=== PATIENT | male | born 1970 | race African-American/Black ===

== ENCOUNTER 2018-11-11 11:34 | Inpatient (IN) | payer MEDICAID, MEDICARE, OTHER, SELFPAY ==
[2018-11-11 12:40] LABS: #Lymphocytes 1.8 thou/uL (1.20-3.40); #Monocytes 0.3 thou/uL (0.11-0.59); #Neutrophils 1.8 thou/uL (1.40-6.50); %Basophils 0.6 % (0.0-1.0); %Eosinophils 0.4 % (0.0-10.0); %Lymphocytes 44.9 % (21.0-51.0); %Monocytes 8.5 % (0.0-10.0); %Neutrophils 45.7 % (42.0-75.0); Hemoglobin 12.8 g/dL (14.0-18.0); Mean Corpuscular HGB CONC 29.6 g/dL (32.0-36.0); Mean Corpuscular Hemoglobin 24.5 pg (27.0-31.0); Mean Corpuscular Volume 82.9 fL (78.0-98.0); Mean Platelet Volume 9.9 fL (7.4-10.4); Platelet Count 207 thou/uL (130-400); RBC Distribution Width 16.7 % (11.5-14.5); Red Blood Cell (RBC) Count 5.23 mill/uL (4.70-6.10)
[2018-11-11 12:44] LABS: ALT (SGPT) 35 U/L (8-55); AST (SGOT) 32 U/L (5-34); Albumin 3.8 g/dL (3.5-5.0); Alkaline Phosphatase 47 U/L (40-150); Anion Gap 15 mmol/L (10-20); BUN (Urea Nitrogen) 26 mg/dL (8.9-20.6); CK (CPK) 193 U/L (30-200); Calc. Creatinine Clearance 0 mL/min (70-130); Carbon Dioxide 24 mmol/L (22-29); Chloride 105 mmol/L (98-107); Estimated GFR-MDRD 63; Globulin 4.3 g/dL (2.4-3.5); Glucose 184 mg/dL (70-105); Lipase 26 U/L (8-78); Potassium 4.3 mmol/L (3.5-5.1); Protein, Total 8.1 g/dL (6.0-8.3); Sodium 140 mmol/L (136-145)
--- NOTE | 2018-11-11 12:46 | RAD ---
CHEST ONE VIEW: History: 48-year-old male with history of dyspnea. History of congestive heart failure, shortness of breath fo r two days. Comparison: 08-28-17 FINDINGS: Cardiomegaly with enlargement when compared to the 08-28-17 study. Mild bilateral vascular congestion and probable small pleural effusions. IMPRESSION: Progressive cardiomegaly with some bilateral vascular congestion and probable small pleural effusions which certainly could be seen with minimal congestive heart failure. No overt edema or confluent pne umonia. POS: ALFIEH
[2018-11-11] MEDS ORDERED: Aspirin 325 MG TAB ONE (13:07)
[2018-11-11] MEDS ORDERED: Nitroglycerin 2% Ointment 1 INCH/1 GM Packet ONE (13:07)
[2018-11-11] MEDS ORDERED: Furosemide 40 MG/4 ML VIAL ONE (13:07)
[2018-11-11 16:26] LABS: Troponin I 0.042 ng/mL (< 0.028)
[2018-11-11 17:25] LABS: Bilirubin Negative (Negative); Blood, Urine Negative (Negative); Clarity CLEAR (Clear); Glucose, Urine (Dipstick) Negative (Negative); Leukocyte Trace (Negative); Nitrite Negative (Negative); Protein, Urine (Dipstick) Negative (Neg-Trace); Specific Gravity, Urine 1.007 (1.002-1.036); Urobilinogen 0.2 mg/dL (0.2-1.0)
[2018-11-11 17:28] LABS: Bacteria/HPF None Seen HPF (None Seen); Hyaline Casts/LPF 0-3 HYALINE CAST LPF (0-3 Hyaline); Pathc Cast-AUWi Flag 0.14 (0-2.49); RBC/HPF 0-3 HPF (0-3); Squamous Epithelial 0-3 HPF (0-3); WBC/HPF 0-3 HPF (0-3)
[2018-11-11 17:42] LABS: Amphetamine Not Detected (NotDetected); Barbiturates Screen Not Detected (NotDetected); Benzodiazepine Screen Not Detected (NotDetected); Cocaine Metabolite Screen Not Detected (NotDetected); Medtox Control Line Valid? VALID (VALID); Medtox Reader # READER 1; Methadone Not Detected (NotDetected); Methamphetamine Not Detected (NotDetected); Opiate Screen Not Detected (NotDetected); Oxycodone Screen Not Detected (NotDetected); Phencyclidine (PCP) Not Detected (NotDetected); THC/Cannabinoid Screen Not Detected (NotDetected); Tricyclic Screen Not Detected (NotDetected)
[2018-11-11] MEDS ORDERED: Calcium Carbonate 500 MG ChewTAB PO PRN (18:35)
[2018-11-11] MEDS ORDERED: Ondansetron PF 4 MG/2 ML Vial IVP PRN (18:35)
[2018-11-11] MEDS ORDERED: Senokot S 8.6-50 MG TAB PO PRN (18:35)
[2018-11-11] MEDS ORDERED: Ondansetron ODT 4 MG TAB PO PRN (18:35)
[2018-11-11 19:19] LABS: Troponin I 0.038 ng/mL (< 0.028)
--- NOTE | 2018-11-11 20:50 | HP ---
PRIMARY CARE PHYSICIAN: Samaria Pete MD PRIMARY POKER SUPERVISOR: The patient has seen Dr. Hannah in the past. CHIEF COMPLAINT: Shortness of breath. HISTORY OF PRESENT ILLNESS: The patient is a 48-year-old male with chronic systolic heart failure, presented to the emergency room with the above complaint. The last admission to this facility was in 2012 for end-stage cardiomyopathy. He was transferred to [facility] in [place] for further care of his end-stage cardiomyopathy. He has a history of normal coronaries in January of 2012. The patient has not been taking any medications recently. The patient presented to the emergency room with worsening shortness of breath over the last 3 to 4 months. The shortness of breath got worse over the last 24 to 48 hours. He has not been able to do his routine activities due to worsening of shortness of breath. He also noticed increased abdominal distention along with some swelling in bilateral lower extremities. He had some cough which was productive of thick whitish phlegm. He had mild generalized headache without any photophobia, phonophobia, or focal neurologic deficit. He has intermittent palpitations without any syncope or lightheadedness. He does not monitor his fluid intake or daily weights. In the emergency room, his initial vital signs showed temperature 97.7, respirations of 26, pulse rate of 115 with a blood pressure of 177/84, with O2 saturation of 98% on room air. His EKG showed sinus tachycardia with nonspecific ST-T wave changes. He received 40 mg IV Lasix with aspirin and a nitroglycerin patch. His chest x-ray showed small pleural effusion along with bilateral vascular congestion. PAST MEDICAL HISTORY: 1. Chronic systolic heart failure. 2. Normal coronaries in January of 2012. 3. Hypertension. 4. Hyperlipidemia. 5. History of nonsustained ventricular tachycardia. 6. Medication noncompliance. 7. HIV, currently not on HAART. PAST SURGICAL HISTORY: Reviewed with the patient and none. ALLERGIES: NO KNOWN DRUG ALLERGIES. CURRENT HOME MEDICATIONS: Reviewed with the patient and none. SOCIAL HISTORY: The patient currently lives at home with his family. He occasionally drinks alcohol. He denies drug use. FAMILY HISTORY: Father with pacemaker placement. There is no history of heart disease or sudden cardiac . REVIEW OF SYSTEMS: All other review of systems was reviewed and were found negative. PHYSICAL EXAMINATION: VITAL SIGNS: As discussed above. GENERAL: A 48-year-old male in [id number] respiratory distress. HEENT: Head atraumatic, normocephalic. Sclerae anicteric. Moist mucous membranes. No oral lesion. NECK: Supple. No JVD. No carotid bruit. LUNGS: Showed diffuse rales as well as rhonchi. No wheezing appreciated. Minimal accessory muscle use. HEART: S1, S2 present. Tachycardic. 2/6 systolic murmur over the mitral area. ABDOMEN: Soft. Obese. Bowel sounds present. EXTREMITIES: 2+ edema in bilateral lower extremities. SKIN: Warm and dry. LYMPH NODES: No palpable lymph nodes in the neck. Peripheral vascular radial pulses palpable bilaterally. MUSCULOSKELETAL: No joint swelling or tenderness. LABORATORY FINDINGS: CBC showed WBC 4.0 with hemoglobin 12.8, hematocrit 43.3, platelet 207. Troponin in the indeterminate range at 0.042. BNP 761. Creatinine 1.44 with BUN of 26. His baseline creatinine in 2016 was 1.1. Urinalysis was negative for wbc bacteria. Urine drug screen was negative. Chest x-ray by my review as discussed above. EKG by my review as discussed above. IMPRESSION: 1. Acute on chronic systolic heart failure exacerbation. 2. Normal coronary arteries in 2011. 3. Chronic kidney disease stage 2. 4. Elevated troponin secondary to congestive heart failure/demand ischemia. 5. Mild chronic anemia. 6. Human immunodeficiency virus, not on highly active antiretroviral therapy. 7. Medication noncompliance. 8. History of nonsustained ventricular tachycardia. 9. Hypertension. 10. Hyperlipidemia. PLAN: The patient will be monitored on the telemetry unit. We will start him on fluid restriction. IV diuretics. We will add low-dose DIANNE inhibitor as well as beta blockers. Cardiology consultation. Heart failure disease management team consultation. We will repeat echocardiogram. We will monitor electrolytes on a daily basis. We will also consult Dr. Pierson since the patient is noncompliant and may not follow up with Dr. Pierson. The patient was extensively counseled on congestive heart failure. Vital signs q.4 hourly. Plan of care was discussed with the patient in detail. He stated understanding. Job ID: [id number]
[2018-11-11 21:31] VITALS: BMI 43.3
[2018-11-11] MEDS: Carvedilol 3.125 MG TAB PO SCH (21:37)
[2018-11-11] MEDS: Acetaminophen 325 MG TAB PO PRN (21:46)
[2018-11-12 05:16] LABS: #Eosinphils 0.1 thou/uL (0.0-0.7); #Lymphocytes 1.8 thou/uL (1.20-3.40); #Monocytes 0.3 thou/uL (0.11-0.59); #Neutrophils 1.5 thou/uL (1.40-6.50); %Basophils 0.5 % (0.0-1.0); %Eosinophils 1.9 % (0.0-10.0); %Lymphocytes 48.5 % (21.0-51.0); %Monocytes 8.3 % (0.0-10.0); %Neutrophils 40.9 % (42.0-75.0); Hemoglobin 12.7 g/dL (14.0-18.0); Mean Corpuscular HGB CONC 30.6 g/dL (32.0-36.0); Mean Corpuscular Hemoglobin 25.3 pg (27.0-31.0); Mean Corpuscular Volume 82.9 fL (78.0-98.0); Mean Platelet Volume 9.7 fL (7.4-10.4); Platelet Count 207 thou/uL (130-400); RBC Distribution Width 16.9 % (11.5-14.5); Red Blood Cell (RBC) Count 5.02 mill/uL (4.70-6.10); White Blood Cell (WBC) Count 3.7 thou/uL (4.8-10.8)
[2018-11-12 05:35] LABS: ALT (SGPT) 34 U/L (8-55); AST (SGOT) 32 U/L (5-34); Albumin 3.5 g/dL (3.5-5.0); Alkaline Phosphatase 46 U/L (40-150); Anion Gap 16 mmol/L (10-20); BUN (Urea Nitrogen) 27 mg/dL (8.9-20.6); Bilirubin, Total 0.9 mg/dL (0.2-1.2); Calc. Creatinine Clearance 127 mL/min (70-130); Carbon Dioxide 19 mmol/L (22-29); Chloride 107 mmol/L (98-107); Estimated GFR-MDRD 64; Globulin 4.4 g/dL (2.4-3.5); Glucose 146 mg/dL (70-105); Magnesium 1.7 mg/dL (1.6-2.6); Potassium 4.2 mmol/L (3.5-5.1); Protein, Total 7.9 g/dL (6.0-8.3); Sodium 138 mmol/L (136-145)
[2018-11-12] MEDS: Furosemide 40 MG/4 ML VIAL SLOW IVP SCH ×2 (06:05→13:30)
[2018-11-12] MEDS: Aspirin 81 mg Enteric Coated Tablet PO SCH (08:37)
[2018-11-12] MEDS: Carvedilol 3.125 MG TAB PO SCH ×2 (08:37→21:28)
[2018-11-12] MEDS: Enoxaparin Sodium 40 MG/0.4 ML SYRINGE SC SCH (08:37)
[2018-11-12] MEDS: Lisinopril 2.5 MG TAB PO SCH (08:37)
[2018-11-12] MEDS: Acetaminophen 325 MG TAB PO PRN ×2 (11:59→21:27)
--- NOTE | 2018-11-12 18:21 | PDOC.PN ---
- Subjective Encounter Start Date: 11/12/18 Encounter Start Time: 09:30 Patient seen and examined for CHF. SOB improving. No new complaints. No overnight events - Objective Resuscitation Status - Order Detail: 11/11/18 18:35 Resuscitation Status Routine Resuscitation Status: FULL: Full Resuscitation MAR Reviewed: Yes Vital Signs & Weight: Vital Signs (12 hours) Temp Pulse Pulse Pulse Resp BP BP 11/12/18 15:37 97.5 F L 98 23 H 11/12/18 11:22 101 H 108 H 112/65 127/85 11/12/18 11:07 99.3 F 97 23 H 11/12/18 08:09 97.4 F L 104 H 16 BP Pulse Ox Pulse Ox Pulse Ox 11/12/18 15:37 118/73 98 11/12/18 11:22 97 98 11/12/18 11:07 121/75 98 11/12/18 08:09 121/97 H 97 Weight Admit Weight 311 lb Weight 311 lb I&O: 11/11/18 11/12/18 11/13/18 06:59 06:59 06:59 Intake Total 240 Output Total 275 Balance -35 Result Diagrams: 11/12/18 05:04 11/12/18 05:04 EKG Reviewed by me: Yes (Tele SR) Phys Exam - Physical Examination Constitutional: NAD Respiratory: no wheezing, no rhonchi Cardiovascular: RRR, no rub Gastrointestinal: soft, non-tender, positive bowel sounds Musculoskeletal: edema present Neurological: moves all 4 limbs Dx/Plan - Plan DVT proph w/SCDs 1. Acute on chronic systolic heart failure exacerbation. 2. Normal coronary arteries in 2011. 3. Chronic kidney disease stage 2. 4. Elevated troponin secondary to congestive heart failure/demand ischemia. 5. Mild chronic anemia. 6. Human immunodeficiency virus, not on highly active antiretroviral therapy. 7. Medication noncompliance. 8. History of nonsustained ventricular tachycardia. 9. Hypertension. 10. Hyperlipidemia PLAN: Cont IV diuretics Cont Coreg and Lisinopril Await Echo Cont fluid rest Cont other meds as below AM labs Review of Systems - Review of Systems Constitutional: negative: fever, chills, sweats, weakness, malaise, other Cardiovascular: negative: chest pain, palpitations, orthopnea, paroxysmal nocturnal dyspnea, edema, light headedness, other - Medications/Allergies Allergies/Adverse Reactions: Allergies Allergy/AdvReac Type Severity Reaction Status Date / Time No Known Drug Allergies Allergy Verified 05/07/13 19:58 Medications: Current Medications Acetaminophen (Tylenol) 650 mg PO Q4H PRN PRN Reason: Headache/Fever/Mild Pain (1-3) Last Admin: 11/12/18 11:59 Dose: 650 mg Aspirin (Ecotrin) 81 mg PO DAILY [facility] Last Admin: 11/12/18 08:37 Dose: 81 mg Calcium Carbonate (Tums) 1,000 mg PO Q4H PRN PRN Reason: Heartburn or Indigestion Carvedilol (Coreg) 3.125 mg PO BID [facility] Last Admin: 11/12/18 08:37 Dose: 3.125 mg Enoxaparin Sodium (Lovenox) 40 mg SC 0900 [facility] Last Admin: 11/12/18 08:37 Dose: 40 mg Furosemide (Lasix) 40 mg SLOW IVP 0600,1400 [facility] Last Admin: 11/12/18 13:30 Dose: 40 mg Lisinopril (Zestril) 2.5 mg PO DAILY [facility] Last Admin: 11/12/18 08:37 Dose: 2.5 mg Ondansetron HCl (Zofran Odt) 4 mg PO Q6H PRN PRN Reason: Nausea/Vomiting Ondansetron HCl (Zofran) 4 mg IVP Q6H PRN PRN Reason: Nausea/Vomiting Senna/Docusate Sodium (Senokot S) 2 tab PO BID PRN PRN Reason: Constipation Sodium Chloride (Flush - Normal Saline) 10 ml IVF PRN PRN PRN Reason: Saline Flush
[2018-11-12] MEDS: Senokot S 8.6-50 MG TAB PO SCH (21:28)
--- NOTE | 2018-11-12 22:17 | CON ---
DATE OF CONSULTATION: HISTORY OF PRESENT ILLNESS: Mr. Gordon has been off his antiretroviral therapy for about 6 months now because of problems with his health insurance. Apparently, he had lost his disability coverage, now has regained it. He has been admitted this time with worsening dyspnea. This is probably precipitated by the fact that he lost his health insurance and has not been able to purchase his medications. He has noticed increase in weight, edema, worsening dyspnea, and some abdominal distention as well. No fever, chills, or headaches. No visual symptoms. No vomiting, hematemesis, or melena. No diarrhea. No genitourinary symptoms. PAST MEDICAL HISTORY: Systolic heart failure, nonischemic with normal coronary angiogram in 2012; hypertension; hyperlipidemia; nonsustained VT; longstanding HIV infection with excellent adherence to antiretroviral therapy until recently when he lost his insurance and had to discontinue medication. His previous CD4 cell count was in the mid 500 range and viral load was undetectable a few months ago. ALLERGIES: NONE. SOCIAL HISTORY: Never smoker. FAMILY HISTORY: Noncontributory. CURRENT MEDICATIONS: 1. Tylenol. 2. Ecotrin. 3. Tums. 4. Coreg. 5. Lovenox. 6. Lasix. 7. Zestril. 8. Zofran. 9. Senokot. IMAGING STUDIES: Include a chest x-ray with cardiomegaly, vascular congestion, and small pleural effusions. ASSESSMENT: 1. Longstanding human immunodeficiency virus infection, previous excellent adherence to antiretroviral therapy and suppressed viral load, now has lost his insurance and has not been able to obtain the medication. It looks like his insurance has been reinstated and no additional problems in refilling it. 2. Cardiomyopathy, dilated, nonischemic with also interruption of treatment because of lack of insurance. DISCUSSION: It appears to me that he does not have any evidence to suggest an opportunistic infectious process. At this time, his cardiomyopathy is the main reason for admission and the inability to get his medications due to lack of insurance. Now, he has regained his insurance and he is going to be on treatment and probably go back to his baseline. We will refill his medications for his HIV management and once he gets out of the hospital, he will be able to obtain them again. Again, I do not think there is any evidence to suggest an opportunistic process at this point in time. Check repeat CD4 and viral load. Job ID: [id number]
--- NOTE | 2018-11-13 02:05 | CON ---
DATE OF CONSULTATION: HISTORY OF PRESENT ILLNESS: Reddy Gordon is a 48-year-old black male, who I initially saw in the hospital in January 2012. He had a history of hypertension and had been taking lisinopril 20 mg daily, but ran out 3 to 4 months prior to that admission. Prior to admission, he was evaluated at the [facility] and was told that he had an enlarged heart and placed on lisinopril 10 mg daily. He took that for one month, but then ran out today prior to admission. On the day of admission, he went to work, lifted 2 windows up over his head, had onset of sharp stabbing pain in his chest, which lasted approximately 2 minutes. This was then totally resolved. He did have diaphoresis with this. He continued to be diaphoretic. He ultimately went to see a doctor in the clinic and was told that he should go to the emergency room with this chest discomfort. On echocardiogram, he was found to have severe left ventricular dysfunction with ejection fraction of 25% to 30% with evidence for diastolic dysfunction with mild mitral regurgitation. He also underwent Lexiscan Cardiolite testing, which revealed left ventricular dilatation. There was fairly homogeneous tracer in the left ventricle with ejection fraction of 27% and mild global hypokinesis. He underwent cardiac catheterization during that admission, which revealed normal coronary arteries. He was seen once in the office for followup in March 2013. He did not do his labs. Echocardiogram at that time revealed an ejection fraction of 20% to 25% with moderate left ventricular dilatation. Medications at that time included carvedilol 12.5 b.i.d., DuoNebs, Edarbi 80 mg daily, furosemide 80 mg q.a.m., prednisone 20 two tablets daily, Proventil inhaler, and simvastatin 20 daily. In April,, he was admitted for diuresis prior to ICD placement. There was difficulty in diuresing him with Cr increasing. He ultimately wqs transferred to [facility] in [place]. I have not seen him since that hospital visit in April,. He has never had an ICD placed. He apparently has been followed by Dr. Colvin. Mr. Gordon states that in September 2017, it was felt that he could work and his social security disability was taken away. He then could not afford his medications. When I asked about a defibrillator, he stated that no one ever suggested that. Over the last year, he has been having problems with increased shortness of breath. He did get some carvedilol from [facility], but this ran out a month ago. He now is admitted with increased edema and increased shortness of breath. He may have some tightness in his chest when he is very short of breath. PAST MEDICAL HISTORY: Hypertension, medical noncompliance, HIV-positive, nonischemic cardiomyopathy, normal coronary arteries. OPERATIONS: None. ALLERGIES: NONE. MEDICATIONS AT HOME: None at the present time. SOCIAL HISTORY: He does not smoke. He occasionally may have some wine. He worked in the past installing windows. FAMILY HISTORY: Father had pacemaker. No family history of myocardial infarction. REVIEW OF SYSTEMS: A 12-point review of systems is otherwise unremarkable. PHYSICAL EXAMINATION: VITAL SIGNS: Blood pressure 118/73, pulse of 98, sinus rhythm on the monitor. HEENT: PERRL. NECK: Supple. CHEST: Reveals bibasilar rales. CARDIOVASCULAR: S1 and S2 normal without any S3 or S4. There is a 1/6 systolic murmur along the left sternal border. ABDOMEN: Normal bowel sounds without tenderness or organomegaly. EXTREMITIES: Revealed 1 to 2+ pretibial edema. NEUROLOGIC: Grossly intact. SKIN: Warm and dry. LABORATORY DATA: EKG reveals sinus tachycardia with a rate of 120 per minute. Biatrial enlargement. Left axis deviation. Poor R-wave progression. Echocardiogram was technically difficult. There was severe left ventricular dysfunction with ejection fraction of 15% to 20%. Severe mitral regurgitation and mild tricuspid regurgitation. Mild pulmonic insufficiency. Hemoglobin 12.7, hematocrit 41.6, white count 3700, platelets 207,000. Sodium 138, potassium 4.2 , chloride 107, carbon dioxide 19, BUN 27, creatinine 1.42. Troponin I 0.042. BNP 761.7. IMPRESSION: 1. Nonischemic cardiomyopathy with ejection fraction of 15% to 20%. 2. Noncompliance with some medications due to lack of funding. 3. HIV positive. 4. Normal coronary arteries. 5. Chronic kidney disease. 6. Demand ischemia with elevated troponin I. 7. History of nonsustained ventricular tachycardia. 8. Hypertension. 9. Hyperlipidemia. PLAN: The patient will be gradually diuresed and resumed on medications. Currently, he is on carvedilol 3.125 b.i.d. With his left ventricular ejection fraction of 15% to 20%, his long-term prognosis is poor. Job ID: [id number] [facility]
[2018-11-13] MEDS: Furosemide 40 MG/4 ML VIAL SLOW IVP SCH ×2 (05:34→13:02)
[2018-11-13 05:42] LABS: #Eosinphils 0.1 thou/uL (0.0-0.7); #Lymphocytes 1.7 thou/uL (1.20-3.40); #Monocytes 0.4 thou/uL (0.11-0.59); #Neutrophils 1.7 thou/uL (1.40-6.50); %Basophils 0.2 % (0.0-1.0); %Lymphocytes 43.5 % (21.0-51.0); %Monocytes 9.3 % (0.0-10.0); Hemoglobin 12.8 g/dL (14.0-18.0); Mean Corpuscular HGB CONC 30.6 g/dL (32.0-36.0); Mean Corpuscular Hemoglobin 25.2 pg (27.0-31.0); Mean Corpuscular Volume 82.5 fL (78.0-98.0); Mean Platelet Volume 9.6 fL (7.4-10.4); Platelet Count 208 thou/uL (130-400); Red Blood Cell (RBC) Count 5.07 mill/uL (4.70-6.10); White Blood Cell (WBC) Count 3.8 thou/uL (4.8-10.8)
[2018-11-13 05:54] LABS: ALT (SGPT) 33 U/L (8-55); AST (SGOT) 31 U/L (5-34); Albumin 3.7 g/dL (3.5-5.0); Alkaline Phosphatase 48 U/L (40-150); Anion Gap 10 mmol/L (10-20); BUN (Urea Nitrogen) 36 mg/dL (8.9-20.6); Bilirubin, Total 0.9 mg/dL (0.2-1.2); Calc. Creatinine Clearance 123 mL/min (70-130); Calcium 8.8 mg/dL (7.8-10.44); Carbon Dioxide 31 mmol/L (22-29); Chloride 103 mmol/L (98-107); Estimated GFR-MDRD 62; Globulin 4.3 g/dL (2.4-3.5); Glucose 131 mg/dL (70-105); Magnesium 1.8 mg/dL (1.6-2.6); Sodium 140 mmol/L (136-145)
[2018-11-13] MEDS: Polyethylene Glycol 3350 17 GM Packet PO SCH (08:33)
[2018-11-13] MEDS: Carvedilol 3.125 MG TAB PO SCH ×2 (08:34→21:31)
[2018-11-13] MEDS: Enoxaparin Sodium 40 MG/0.4 ML SYRINGE SC SCH (08:34)
[2018-11-13] MEDS: Senokot S 8.6-50 MG TAB PO SCH ×2 (08:34→21:31)
[2018-11-13] MEDS: Aspirin 81 mg Enteric Coated Tablet PO SCH (08:34)
[2018-11-13] MEDS: Lisinopril 2.5 MG TAB PO SCH (08:34)
--- NOTE | 2018-11-13 11:16 | PDOC.PN ---
- Subjective Encounter Start Date: 11/13/18 Encounter Start Time: 09:30 Patient seen and examined for CHF exacerbation. SOB improving. No new complaints. No overnight events - Objective Resuscitation Status - Order Detail: 11/11/18 18:35 Resuscitation Status Routine Resuscitation Status: FULL: Full Resuscitation MAR Reviewed: Yes Vital Signs & Weight: Vital Signs (12 hours) Temp Pulse Resp BP Pulse Ox 11/13/18 08:34 91 11/13/18 08:31 98 F 91 16 119/65 99 11/13/18 04:00 98.1 F 97 16 109/69 97 Weight Admit Weight 311 lb Weight 309 lb I&O: 11/12/18 11/13/18 11/14/18 06:59 06:59 06:59 Intake Total 240 1480 Output Total 275 1350 Balance -35 130 Result Diagrams: 11/13/18 05:24 11/13/18 05:24 EKG Reviewed by me: Yes (Tele SR) Phys Exam - Physical Examination Constitutional: NAD Respiratory: no wheezing, no rhonchi Cardiovascular: RRR, no rub Gastrointestinal: soft, no distention Musculoskeletal: edema present Dx/Plan - Plan DVT proph w/lovenox, DVT proph w/SCDs 1. Acute on chronic systolic heart failure exacerbation. improving. EF 15-20% 2. Elevated troponin secondary to congestive heart failure/demand ischemia. 3. Chronic kidney disease stage 2. 4. Normal coronary arteries in 2011. 5. Mild chronic anemia. 6. Human immunodeficiency virus, not on Rx. 7. Medication noncompliance. 8. History of nonsustained ventricular tachycardia. 9. Hypertension. 10. Hyperlipidemia. 11. Severe MR and moderate DC. PLAN: Cont IV diuretics/Coreg/Lisinopril/fluid rest CD4 pending Cont other meds as below AM labs Review of Systems - Review of Systems Respiratory: SOB with Excertion. negative: Cough, Dry, Shortness of Breath, Hemoptysis, Pleuritic Pain, Sputum, Wheezing Cardiovascular: negative: chest pain, palpitations, orthopnea, paroxysmal nocturnal dyspnea, edema, light headedness, other - Medications/Allergies Allergies/Adverse Reactions: Allergies Allergy/AdvReac Type Severity Reaction Status Date / Time No Known Drug Allergies Allergy Verified 05/07/13 19:58 Medications: Current Medications Acetaminophen (Tylenol) 650 mg PO Q4H PRN PRN Reason: Headache/Fever/Mild Pain (1-3) Last Admin: 11/12/18 21:27 Dose: 650 mg Aspirin (Ecotrin) 81 mg PO DAILY [facility] Last Admin: 11/13/18 08:34 Dose: 81 mg Calcium Carbonate (Tums) 1,000 mg PO Q4H PRN PRN Reason: Heartburn or Indigestion Carvedilol (Coreg) 3.125 mg PO BID [facility] Last Admin: 11/13/18 08:34 Dose: 3.125 mg Enoxaparin Sodium (Lovenox) 40 mg SC 0900 [facility] Last Admin: 11/13/18 08:34 Dose: 40 mg Furosemide (Lasix) 40 mg SLOW IVP 0600,1400 [facility] Last Admin: 11/13/18 05:34 Dose: 40 mg Lisinopril (Zestril) 2.5 mg PO DAILY [facility] Last Admin: 11/13/18 08:34 Dose: 2.5 mg Ondansetron HCl (Zofran Odt) 4 mg PO Q6H PRN PRN Reason: Nausea/Vomiting Ondansetron HCl (Zofran) 4 mg IVP Q6H PRN PRN Reason: Nausea/Vomiting Polyethylene Glycol (Miralax) 17 gm PO DAILY [facility] Last Admin: 11/13/18 08:33 Dose: Not Given Senna/Docusate Sodium (Senokot S) 2 tab PO BID PRN PRN Reason: Constipation Senna/Docusate Sodium (Senokot S) 2 tab PO BID [facility] Last Admin: 11/13/18 08:34 Dose: 2 tab Sodium Chloride (Flush - Normal Saline) 10 ml IVF PRN PRN PRN Reason: Saline Flush
[2018-11-13] MEDS: Acetaminophen 325 MG TAB PO PRN ×2 (13:02→21:44)
[2018-11-13] MEDS ORDERED: Cepastat Lozenges 1 LOZ PO PRN (17:47)
[2018-11-13] MEDS ORDERED: Diabetic Tussin 200 MG/10 ML UDCUP PO PRN (17:47)
[2018-11-13] MEDS ORDERED: Amiodarone 150 MG, Admixture Fee 1 EACH in Dextrose 5% in Water 100 ML IVPB SCH (19:15)
[2018-11-13] MEDS ORDERED: Amiodarone 450 MG, Admixture Fee 1 EACH in Dextrose 5% in Water 250 ML IVPB SCH (19:15)
[2018-11-13] MEDS: guaiFENesin ER 600 MG TAB PO SCH (21:31)
[2018-11-13] MEDS: Adenosine 6 MG/2 ML VIAL IVP SCH (21:37)
[2018-11-13] MEDS ORDERED: Lidocaine 2 gm/D5W 500ML PREMIX BAG ONE (22:00)
[2018-11-13] MEDS ORDERED: Amiodarone 150 MG/3 ML VIAL ONE (22:00)
[2018-11-13] MEDS ORDERED: Adenosine 6 MG/2 ML VIAL ONE (22:00)
--- NOTE | 2018-11-14 00:20 | PRG ---
DATE OF SERVICE: 11/13/2018 CRITICAL CARE NOTE: Mr. Gordon is awaiting EP consultation for possible AICD placement, secondary to LV dysfunction. Earlier this evening, he went into rapid SVT, heart rate in the 200s. The code renetta was called. I gave him one dose of IV adenosine without significant change in his rhythm. He had a second dose of IV adenosine at 12 mg and again there was no significant change in his rhythm. He was started on amiodarone drip and this actually made him to start slowly coming down, heart rate went down to the 180s, eventually 160s, 150s until he converted himself back into the 80s. He became mildly hypotensive in the 80s over 50s, so he was transferred to the [facility] for further care. He has remained stable there. Most likely, the hypotension is due to the effect of the amiodarone. Currently, he is in the stable condition, mostly asymptomatic. Over 30 minutes of critical care were delivered at bedside. Job ID: [id number]
[2018-11-14] MEDS ORDERED: Sodium Chloride 0.9% 500 ML IVPB SCH (04:00)
[2018-11-14] MEDS: Diltiazem HCl 125 MG, Admixture Fee 1 EACH in Sodium Chloride 0.9% 100 ML IVPB SCH (04:28)
[2018-11-14] MEDS: Furosemide 40 MG/4 ML VIAL SLOW IVP SCH ×2 (06:15→15:12)
[2018-11-14] MEDS: guaiFENesin ER 600 MG TAB PO SCH ×2 (09:13→20:54)
[2018-11-14] MEDS: Lisinopril 2.5 MG TAB PO SCH (09:13)
[2018-11-14] MEDS: Enoxaparin Sodium 40 MG/0.4 ML SYRINGE SC SCH (09:13)
[2018-11-14] MEDS: Polyethylene Glycol 3350 17 GM Packet PO SCH (09:14)
[2018-11-14] MEDS: Carvedilol 3.125 MG TAB PO SCH ×2 (09:14→20:54)
[2018-11-14] MEDS: Aspirin 81 mg Enteric Coated Tablet PO SCH (09:14)
[2018-11-14] MEDS: Senokot S 8.6-50 MG TAB PO SCH ×2 (09:14→20:54)
[2018-11-14 13:16] LABS: %CD4 (Helper/Inducer) 12.3 % (30.8-58.5); Absolute CD4 185 /uL (359-1519); Lymphocytes/Gated Cell Count 1.5 x10E3/uL (0.7-3.1); Total Lymphocyte 42 % (Not Estab.); WBC Total Count 3.5 x10E3/uL (3.4-10.8)
[2018-11-14] MEDS: Adenosine 6 MG/2 ML VIAL IVP SCH (19:37)
[2018-11-14] MEDS: Raltegravir Potassium 400 MG TAB PO SCH (20:53)
[2018-11-14] MEDS: Acetaminophen 325 MG TAB PO PRN (20:55)
--- NOTE | 2018-11-14 21:40 | PDOC.PN ---
- Subjective Encounter Start Date: 11/14/18 Encounter Start Time: 09:00 Patient seen and examined for CHF. No new complaints. Overnight events noted. - Objective Resuscitation Status - Order Detail: 11/11/18 18:35 Resuscitation Status Routine Resuscitation Status: FULL: Full Resuscitation MAR Reviewed: Yes Vital Signs & Weight: Vital Signs (12 hours) Temp Pulse Pulse Pulse Resp BP BP 11/14/18 17:45 97 18 11/14/18 16:50 100 11/14/18 16:00 102 H 19 11/14/18 11:20 96.6 F L 102 H 11/14/18 10:10 92 100 101/77 105/75 BP Pulse Ox 11/14/18 17:45 109/71 11/14/18 16:50 108/70 11/14/18 16:00 102/68 99 11/14/18 11:20 97/76 100 11/14/18 10:10 Weight Admit Weight 311 lb Weight 307 lb I&O: 11/13/18 11/14/18 11/15/18 06:59 06:59 06:59 Intake Total 1480 1726 250 Output Total 1350 1775 Balance 130 -49 250 Result Diagrams: 11/13/18 05:24 11/15/18 04:38 EKG Reviewed by me: Yes (Tele SR) Phys Exam - Physical Examination Constitutional: NAD Respiratory: no wheezing, no rhonchi Cardiovascular: RRR, no rub Gastrointestinal: soft, non-tender, positive bowel sounds Musculoskeletal: edema present Neurological: moves all 4 limbs Dx/Plan - Plan DVT proph w/SCDs 1. Acute on chronic systolic heart failure exacerbation. improving. EF 15-20%. 2. Elevated troponin secondary to congestive heart failure/demand ischemia. 3. SVT requiring Cardizem drip. 4. Normal coronary arteries in 2012. 5. Mild chronic anemia. 6. Human immunodeficiency virus, not on Rx. 7. Medication noncompliance. 8. History of nonsustained ventricular tachycardia. 9. Hypertension. 10. Hyperlipidemia. 11. Severe MR and moderate [place]. 12. Chronic kidney disease stage 2. PLAN: Cont Cardizem drip Transfer to Tele Cont IV diuretics Cont Coreg/Lisinopril Cont other meds as below AM labs Review of Systems - Review of Systems Respiratory: negative: Cough, Dry, Shortness of Breath, Hemoptysis, SOB with Excertion, Pleuritic Pain, Sputum, Wheezing Cardiovascular: negative: chest pain, palpitations, orthopnea, paroxysmal nocturnal dyspnea, edema, light headedness, other - Medications/Allergies Allergies/Adverse Reactions: Allergies Allergy/AdvReac Type Severity Reaction Status Date / Time No Known Drug Allergies Allergy Verified 05/07/13 19:58 Medications: Current Medications Acetaminophen (Tylenol) 650 mg PO Q4H PRN PRN Reason: Headache/Fever/Mild Pain (1-3) Last Admin: 11/14/18 20:55 Dose: 650 mg Aspirin (Ecotrin) 81 mg PO DAILY [facility] Last Admin: 11/14/18 09:14 Dose: 81 mg Calcium Carbonate (Tums) 1,000 mg PO Q4H PRN PRN Reason: Heartburn or Indigestion Carvedilol (Coreg) 3.125 mg PO BID [facility] Last Admin: 11/14/18 20:54 Dose: 3.125 mg Enoxaparin Sodium (Lovenox) 40 mg SC 0900 [facility] Last Admin: 11/14/18 09:13 Dose: 40 mg Etravirine (Intelence) 200 mg PO BID-PC [facility] Last Admin: 11/14/18 18:49 Dose: 200 mg Furosemide (Lasix) 40 mg SLOW IVP 0600,1400 [facility] Last Admin: 11/14/18 15:12 Dose: 40 mg Guaifenesin (Mucinex) 600 mg PO Q12HR [facility] Last Admin: 11/14/18 20:54 Dose: 600 mg Guaifenesin (Robitussin Sf) 200 mg PO Q4H PRN PRN Reason: Cough Amiodarone HCl 450 mg/Miscellaneous Medication 1 each/ Dextrose/Water 259 mls @ 0 mls/hr IVPB INF [facility]; Protocol Last Admin: 11/13/18 19:25 Dose: 259 mls Diltiazem HCl 125 mg/Miscellaneous Medication 1 each/ Sodium Chloride 125 mls @ 5 mls/hr IVPB INF [facility]; Protocol Last Admin: 11/14/18 04:28 Dose: 125 mls Lamivudine (Epivir) 150 mg PO BID [facility] Last Admin: 11/14/18 20:54 Dose: 150 mg Lisinopril (Zestril) 2.5 mg PO DAILY [facility] Last Admin: 11/14/18 09:13 Dose: 2.5 mg Ondansetron HCl (Zofran Odt) 4 mg PO Q6H PRN PRN Reason: Nausea/Vomiting Ondansetron HCl (Zofran) 4 mg IVP Q6H PRN PRN Reason: Nausea/Vomiting Polyethylene Glycol (Miralax) 17 gm PO DAILY [facility] Last Admin: 11/14/18 09:14 Dose: Not Given Raltegravir (Isentress) 400 mg PO BID [facility] Last Admin: 11/14/18 20:53 Dose: 400 mg Senna/Docusate Sodium (Senokot S) 2 tab PO BID PRN PRN Reason: Constipation Senna/Docusate Sodium (Senokot S) 2 tab PO BID [facility] Last Admin: 11/14/18 20:54 Dose: 2 tab Sodium Chloride (Flush - Normal Saline) 10 ml IVF PRN PRN PRN Reason: Saline Flush Last Admin: 11/13/18 13:02 Dose: 10 ml Throat Lozenges (Cepastat Lozenges) 1 fermin PO Q2H PRN PRN Reason: Sore Throat Trimethoprim/Sulfamethoxazole (Bactrim Ds) 1 tab PO DAILY [facility]
--- NOTE | 2018-11-14 23:40 | CON ---
DATE OF CONSULTATION: HISTORY OF PRESENT ILLNESS: Mr. Gordon is a pleasant gentleman, who had supraventricular tachycardia that did not respond to adenosine. He eventually was started on amiodarone. He is seen in the intermediate care unit today. He says he is feeling fine and denies having any shortness of breath. He has been seen intermittently by several cardiologists in [facility]. Apparently, he lost his insurance, but says he has Medicaid that is getting ready to start. He is admitted for shortness of breath, chest tightness and fluid retention. PAST MEDICAL HISTORY: Remarkable for, 1. Hypertension. 2. HIV positive. 3. Nonischemic cardiomyopathy. 4. History of possible sleep apnea. He tells me that his doctor at [facility] wanted to get him a sleep study, but they wanted too much money for the test and he did not have the insurance. SOCIAL HISTORY: He is a nonsmoker and nondrinker. FAMILY HISTORY: Negative for lung disease in early age. ALLERGIES: HE REPORTS NO DRUG ALLERGIES. REVIEW OF SYSTEMS: Ten points otherwise negative. On review of systems questioning, we discussed sleep. He says he wakes himself up from sleep, snoring, and feels his heart racing. PHYSICAL EXAMINATION: GENERAL: He is in no distress, sitting up in a chair when I saw him this morning. He is actually a large man, 5 feet 11 inches, 307 pounds. VITAL SIGNS: Blood pressure 101/77, heart rate 92, respiratory rate 18, oximetry is 98% on room air. HEENT: Pupils are equal. Sclerae are anicteric. Throat is clear. NECK: Supple. No lymphadenopathy. Has a large neck. LUNGS: Clear. HEART: Regular rhythm. S1 and S2 are normal. ABDOMEN: Soft and nontender. EXTREMITIES: Only trace edema. DIAGNOSTIC DATA: Chest x-ray on admission suggestive of mild pulmonary edema. Echocardiogram showed an EF of 15% to 20%. DISCUSSION: We discussed getting a sleep study at a later date. Once he has Medicaid, hopefully we can do this. The other option would be for him to buy an AutoPAP device and try to manage him the best we can with the data downloads. We will follow with the other physicians caring for him. TIME SPENT: This is a 50-minute consult, 50% of the time was spent on the unit coordinating care. Job ID: [id number]
[2018-11-15] MEDS: Diltiazem HCl 125 MG, Admixture Fee 1 EACH in Sodium Chloride 0.9% 100 ML IVPB SCH (03:30)
[2018-11-15 05:45] LABS: Anion Gap 15 mmol/L (10-20); BUN (Urea Nitrogen) 46 mg/dL (8.9-20.6); Calc. Creatinine Clearance 112 mL/min (70-130); Calcium 8.7 mg/dL (7.8-10.44); Carbon Dioxide 25 mmol/L (22-29); Chloride 102 mmol/L (98-107); Estimated GFR-MDRD 57; Glucose 128 mg/dL (70-105); Potassium 4.3 mmol/L (3.5-5.1); Sodium 138 mmol/L (136-145)
[2018-11-15] MEDS: Furosemide 40 MG/4 ML VIAL SLOW IVP SCH ×2 (06:35→15:48)
--- NOTE | 2018-11-15 07:29 | EKG ---
Test Reason : Blood Pressure : / mmHG Vent. Rate : 165 BPM Atrial Rate : 075 BPM P-R Int : 000 ms QRS Dur : 132 ms QT Int : 348 ms P-R-T Axes : 000 -64 081 degrees QTc Int : 576 ms Wide QRS tachycardia /Acute SVT favored Left axis deviation Non-specific intra-ventricular conduction block Cannot rule out Septal infarct , age undetermined Abnormal ECG When compared with ECG of 11-NOV-2018 11:41, Wide QRS tachycardia has replaced Sinus rhythm Confirmed by RINKU MANCERA ([id number]) on 11/15/2018 7:28:36 AM Referred By: MEAGAN Confirmed By:RINKU MANCERA
[2018-11-15] MEDS: Enoxaparin Sodium 40 MG/0.4 ML SYRINGE SC SCH (08:47)
[2018-11-15] MEDS: Carvedilol 3.125 MG TAB PO SCH ×2 (08:48→20:40)
[2018-11-15] MEDS: guaiFENesin ER 600 MG TAB PO SCH ×2 (08:48→20:40)
[2018-11-15] MEDS: Raltegravir Potassium 400 MG TAB PO SCH ×2 (08:48→20:40)
[2018-11-15] MEDS: Lisinopril 2.5 MG TAB PO SCH (08:48)
[2018-11-15] MEDS: Aspirin 81 mg Enteric Coated Tablet PO SCH (08:49)
[2018-11-15] MEDS: Senokot S 8.6-50 MG TAB PO SCH ×2 (08:49→22:14)
[2018-11-15] MEDS: Polyethylene Glycol 3350 17 GM Packet PO SCH (08:49)
[2018-11-15] MEDS ORDERED: Sulfameth/Trimethoprim DS 800-160mg TAB PO SCH (09:00)
[2018-11-15] MEDS ORDERED: CEFAZOLIN 2 GM/50 ML BAG ONE (11:05)
[2018-11-15] MEDS ORDERED: CEFAZOLIN 1 GM VIAL ONE ×3 (11:06→12:37)
[2018-11-15] MEDS ORDERED: KETAMINE 100 MG/ML (5ML VIAL) ONE (11:37)
[2018-11-15] MEDS ORDERED: Fentanyl 100 MCG/2 ML VIAL ONE (11:37)
[2018-11-15] MEDS ORDERED: Propofol 500 MG/50 ML VIAL ONE (11:37)
[2018-11-15] MEDS ORDERED: Midazolam HCl 2 mg/2 ml Vial ONE (11:37)
[2018-11-15] MEDS ORDERED: Gentamicin 80 MG/2 ML VIAL ONE (12:37)
--- NOTE | 2018-11-15 14:41 | RAD ---
PORTABLE CHEST: 11/15/2018 PROVIDED CLINICAL HISTORY: Post pacemaker. COMPARISON: 11/11/2018 FINDINGS: The cardiac silhouette remains prominently enlarged. Interval placement of left subclavian cardiac p acing device, with lead tips overlying the expected locations of RA and RV. Prominence of the pulmon aye vasculature and pulmonary interstitium persist. No focal consolidation, pleural fluid, or pneumo thorax apparent. IMPRESSION: 1. Status post cardiac pacing device placement without apparent complication. 2. Findings suggesting congestive failure. POS: [place]
--- NOTE | 2018-11-15 17:15 | CON ---
DATE OF CONSULTATION: 11/15/2018 REFERRING PHYSICIAN: Maik Hannah MD DICTATING FOR: Dr. Joie Kapoor. REASON FOR CONSULTATION: Nonischemic cardiomyopathy, severely reduced ejection fraction, SVT. HISTORY OF PRESENT ILLNESS: Mr. Gordon is a 48-year-old male with a longstanding history of nonischemic cardiomyopathy. He was initially found to have severely reduced ejection fraction in March 2013, at which point an echocardiogram revealed an ejection fraction of 20% to 25% with moderate LV dilatation. He has had intermittent medical management and appears to have bounced around somewhat between Dr. Hannah, Dr. Colvni, and also [facility] in [place]. There has also been a fair amounts of medical noncompliance, but also partially related to lack of funding for medications. He reports that he has worn a LifeVest in the past when he was under the care of Dr. Castaneda in [place]. Mr. Gordon reports that over the past 6 months to a year, he has noticed that he has been having increasing shortness of breath, it is gradually progressive. He began to experience increasing edema and some tightness in his chest, became extremely short of breath and presented to the emergency room for further evaluation, so we admitted to the hospital for further evaluation. Echocardiogram during this hospital stay reveals an ejection fraction of 15% to 20% with severe mitral regurgitation present. Also during this stay, he has had an episode of SVT that was really quite rapid up to 200 beats per minute. This was not responsive to 2 doses of adenosine and ultimately required IV amiodarone for rate control. His heart rate gradually reduced to 150 beats per minute before he converted back to sinus rhythm. REVIEW OF SYSTEMS: GENERAL: The patient feels well. He has not had any fevers, chills, or malaise. Positive for weight gain. CARDIOVASCULAR: Denies heart racing or palpitations. Positive for chest pain. Negative for dizziness, syncope, near syncope, or stroke. PULMONARY: Positive for shortness of breath. Positive for fatigue. Negative for cough. GI: Negative for nausea, vomiting, diarrhea, constipation, or blood in stool. NEUROLOGIC: Negative for headache, unilateral weakness, speech changes, vision changes, stroke or stroke-like symptoms. PAST MEDICAL HISTORY: 1. Hypertension. 2. Medical noncompliance. 3. HIV positive. 4. Nonischemic cardiomyopathy. 5. Normal coronary arteries by left heart catheterization in 2011. ALLERGIES: NO KNOWN DRUG ALLERGIES. HOME MEDICATIONS: None. Previously on Coreg and lisinopril with intermittent and inconsistent use. SOCIAL HISTORY: Negative for tobacco. Positive for occasional alcohol history. Reported history of cocaine use. FAMILY HISTORY: Negative for sudden cardiac . Negative for early-onset coronary artery disease. PHYSICAL EXAMINATION: VITAL SIGNS: Most recent vitals; temperature 98.8, pulse 94, blood pressure 116/60, respirations 20, and oximetry is 97% on room air. GENERAL: Mr. Gordon is alert and oriented. Speech is clear. Affect is appropriate. He is morbidly obese. He is well groomed. HEENT: He is normocephalic and atraumatic. Sclerae anicteric. EOMs are intact. He has adequate dentition. NECK: Supple without jugular venous distention. LUNGS: Clear to auscultation bilaterally without wheezes, crackles, or rhonchi. HEART: Rate is regularly regular. PMI is nonpalpable. EXTREMITIES: Warm and dry to touch without clubbing or cyanosis, but bilateral lower extremity 1+ edema is noted to his lower extremities. ABDOMEN: Obese, soft, and nontender without palpable masses. Hepatojugular reflux is negative. NEUROLOGIC: Grossly intact and nonfocal. Gait was not assessed. LABORATORY DATA: Database laboratory; WBC 3.8, hemoglobin 12.8, hematocrit 41.8, platelet count 208. Chemistry; potassium 4.3, BUN is 46, creatinine 1.59 (slightly elevated from his baseline, but has been as high as 4.1 in the past). BNP on 11/11 was 761. TSH 1.6. DIAGNOSTIC DATA: Telemetry and EKG largely reflect sinus rhythm. Few nights past, he did have an episode of SVT that appears to be in atrial tachycardia with rates up to 200 beats per minute. This terminated with amiodarone and he has since been in sinus rhythm. Echocardiogram, severely depressed ejection fraction of 15% to 20%. IMPRESSION: 1. Nonischemic cardiomyopathy with severely reduced ejection fraction of 15% to 20% since 2012. 2. Medical noncompliance, partially related to lack of funding. 3. Human immunodeficiency virus positive. 4. Normal coronary arteries. 5. Atrial tachycardia. 6. Chronic kidney disease. 7. Hypertension. 8. Hyperlipidemia. 9. Morbid obesity. RECOMMENDATIONS: I discussed treatment options with Mr. Gordon regarding his heart disease and indication for defibrillator to be implanted. His ejection fraction has remained severely depressed since 2012, and he has been on some medical management in the past, even though he recently ran out of medications. That in consideration with his atrial tachycardia, we discussed dual-chamber ICD implant that can be performed later today. He is n.p.o. Risks associated with implant include pain, swelling, bruising, infection, perforation of heart, and internal bleeding. The patient voices understanding and is willing to proceed with device implant. We have stressed the importance of his need for routine office followup for management of his device, the patient is willing to follow up in clinic. Thank you for allowing us to participate in the care of this patient. Job ID: [id number]
[2018-11-15] MEDS: Acetaminophen 325 MG TAB PO PRN (20:40)
[2018-11-15] MEDS: Amiodarone 200 MG TAB PO SCH (20:40)
--- NOTE | 2018-11-15 22:48 | PDOC.PN ---
- Subjective Encounter Start Date: 11/15/18 Encounter Start Time: 16:00 Patient seen and examined for CHF/Afib. s/p AICD. No new complaints. No overnight events - Objective Resuscitation Status - Order Detail: 11/11/18 18:35 Resuscitation Status Routine Resuscitation Status: FULL: Full Resuscitation MAR Reviewed: Yes Vital Signs & Weight: Vital Signs (12 hours) Temp Pulse Resp BP Pulse Ox 11/15/18 20:00 97.8 F 100 20 112/57 L 99 11/15/18 15:50 98.2 F 91 20 123/80 94 L 11/15/18 11:08 97.6 F 99 24 H 138/70 95 Weight Admit Weight 311 lb Weight 307 lb I&O: 11/14/18 11/15/18 11/16/18 06:59 06:59 06:59 Intake Total 1726 410 637 Output Total 1775 1200 Balance -49 410 -375 Result Diagrams: 11/13/18 05:24 11/15/18 04:38 Additional Labs: Accuchecks 11/15/18 11/15/18 11/15/18 20:26 16:39 11:08 POC Glucose 188 H 256 H 119 H EKG Reviewed by me: Yes (Tele SR) Phys Exam - Physical Examination Constitutional: NAD Respiratory: no wheezing, no rhonchi few rales at bases Cardiovascular: RRR, no rub Gastrointestinal: soft, non-tender, positive bowel sounds Musculoskeletal: edema present Neurological: moves all 4 limbs Dx/Plan - Plan DVT proph w/SCDs 1. Acute on chronic systolic heart failure exacerbation. improving. EF 15-20%. s /p AICD 11/15 2. Elevated troponin secondary to congestive heart failure/demand ischemia. 3. SVT requiring Cardizem drip. 4. Normal coronary arteries in 2011. 5. Mild chronic anemia. 6. Human immunodeficiency virus 7. Medication noncompliance. 8. History of nonsustained ventricular tachycardia. 9. Hypertension. 10. Hyperlipidemia. 11. Severe MR and moderate [place]. 12. Chronic kidney disease stage 2. PLAN: on Cardizem drip s/p AICD Cont IV diuretics Cont Coreg/ACEI Cont other meds as below AM labs HAART started On Bactrim for PCP prophylaxis Review of Systems - Review of Systems Respiratory: SOB with Excertion. negative: Cough, Dry, Shortness of Breath, Hemoptysis, Pleuritic Pain, Sputum, Wheezing Cardiovascular: negative: chest pain, palpitations, orthopnea, paroxysmal nocturnal dyspnea, edema, light headedness, other - Medications/Allergies Allergies/Adverse Reactions: Allergies Allergy/AdvReac Type Severity Reaction Status Date / Time No Known Drug Allergies Allergy Verified 05/07/13 19:58 Medications: Current Medications Acetaminophen (Tylenol) 650 mg PO Q4H PRN PRN Reason: Headache/Fever/Mild Pain (1-3) Last Admin: 11/15/18 20:40 Dose: 650 mg Amiodarone HCl (Cordarone) 400 mg PO BID [facility] Last Admin: 11/15/18 20:40 Dose: 400 mg Aspirin (Ecotrin) 81 mg PO DAILY [facility] Last Admin: 11/15/18 08:49 Dose: 81 mg Calcium Carbonate (Tums) 1,000 mg PO Q4H PRN PRN Reason: Heartburn or Indigestion Carvedilol (Coreg) 3.125 mg PO BID [facility] Last Admin: 11/15/18 20:40 Dose: 3.125 mg Enoxaparin Sodium (Lovenox) 40 mg SC 0900 [facility] Last Admin: 11/15/18 08:47 Dose: 40 mg Etravirine (Intelence) 200 mg PO BID-PC [facility] Last Admin: 11/15/18 18:21 Dose: 200 mg Furosemide (Lasix) 40 mg SLOW IVP 0600,1400 [facility] Last Admin: 11/15/18 15:48 Dose: 40 mg Guaifenesin (Mucinex) 600 mg PO Q12HR [facility] Last Admin: 11/15/18 20:40 Dose: 600 mg Guaifenesin (Robitussin Sf) 200 mg PO Q4H PRN PRN Reason: Cough Diltiazem HCl 125 mg/Miscellaneous Medication 1 each/ Sodium Chloride 125 mls @ 5 mls/hr IVPB INF [facility]; Protocol Last Admin: 11/15/18 03:30 Dose: 125 mls Lamivudine (Epivir) 150 mg PO BID [facility] Last Admin: 11/15/18 20:53 Dose: 150 mg Lisinopril (Zestril) 2.5 mg PO DAILY [facility] Last Admin: 11/15/18 08:48 Dose: 2.5 mg Ondansetron HCl (Zofran Odt) 4 mg PO Q6H PRN PRN Reason: Nausea/Vomiting Ondansetron HCl (Zofran) 4 mg IVP Q6H PRN PRN Reason: Nausea/Vomiting Polyethylene Glycol (Miralax) 17 gm PO DAILY [facility] Last Admin: 11/15/18 08:49 Dose: Not Given Raltegravir (Isentress) 400 mg PO BID [facility] Last Admin: 11/15/18 20:40 Dose: 400 mg Senna/Docusate Sodium (Senokot S) 2 tab PO BID PRN PRN Reason: Constipation Senna/Docusate Sodium (Senokot S) 2 tab PO BID [facility] Last Admin: 11/15/18 22:14 Dose: Not Given Sodium Chloride (Flush - Normal Saline) 10 ml IVF PRN PRN PRN Reason: Saline Flush Last Admin: 11/15/18 15:47 Dose: 10 ml Throat Lozenges (Cepastat Lozenges) 1 fermin PO Q2H PRN PRN Reason: Sore Throat Trimethoprim/Sulfamethoxazole (Bactrim Ds) 1 tab PO DAILY [facility] Last Admin: 11/15/18 08:48 Dose: 1 tab
[2018-11-16] MEDS: Diltiazem HCl 125 MG, Admixture Fee 1 EACH in Sodium Chloride 0.9% 100 ML IVPB SCH (02:56)
[2018-11-16 05:25] LABS: #Lymphocytes 2.1 thou/uL (1.20-3.40); #Monocytes 0.5 thou/uL (0.11-0.59); #Neutrophils 3.2 thou/uL (1.40-6.50); %Basophils 0.3 % (0.0-1.0); %Eosinophils 0.2 % (0.0-10.0); %Lymphocytes 35.7 % (21.0-51.0); %Neutrophils 55.8 % (42.0-75.0); Hemoglobin 13.4 g/dL (14.0-18.0); Mean Corpuscular HGB CONC 30.5 g/dL (32.0-36.0); Mean Corpuscular Hemoglobin 25.3 pg (27.0-31.0); Mean Corpuscular Volume 82.8 fL (78.0-98.0); Mean Platelet Volume 10.7 fL (7.4-10.4); Platelet Count 206 thou/uL (130-400); RBC Distribution Width 17.1 % (11.5-14.5); Red Blood Cell (RBC) Count 5.32 mill/uL (4.70-6.10); White Blood Cell (WBC) Count 5.8 thou/uL (4.8-10.8)
[2018-11-16 05:39] LABS: Anion Gap 15 mmol/L (10-20); BUN (Urea Nitrogen) 47 mg/dL (8.9-20.6); Calc. Creatinine Clearance 86 mL/min (70-130); Calcium 8.5 mg/dL (7.8-10.44); Carbon Dioxide 26 mmol/L (22-29); Chloride 100 mmol/L (98-107); Estimated GFR-MDRD 42; Glucose 171 mg/dL (70-105); Magnesium 1.9 mg/dL (1.6-2.6); Potassium 4.4 mmol/L (3.5-5.1); Sodium 137 mmol/L (136-145)
[2018-11-16] MEDS: Furosemide 40 MG/4 ML VIAL SLOW IVP SCH (05:53)
[2018-11-16] MEDS: Raltegravir Potassium 400 MG TAB PO SCH ×2 (08:28→21:19)
[2018-11-16] MEDS: Polyethylene Glycol 3350 17 GM Packet PO SCH (08:28)
[2018-11-16] MEDS: Amiodarone 200 MG TAB PO SCH ×2 (08:29→21:18)
[2018-11-16] MEDS: guaiFENesin ER 600 MG TAB PO SCH ×2 (08:29→21:19)
[2018-11-16] MEDS: Senokot S 8.6-50 MG TAB PO SCH (08:29)
[2018-11-16] MEDS: Aspirin 81 mg Enteric Coated Tablet PO SCH (08:30)
[2018-11-16] MEDS: Carvedilol 3.125 MG TAB PO SCH ×2 (08:30→21:19)
[2018-11-16] MEDS: Enoxaparin Sodium 30 MG/0.3 ML SYRINGE SC SCH (08:30)
[2018-11-16] MEDS ORDERED: Senokot 8.6 MG TAB PO PRN (08:46)
--- NOTE | 2018-11-16 13:46 | PRG ---
DATE OF SERVICE: 11/16/2018 SUBJECTIVE: The patient denies any new complaints at this time. He had some discomfort over the AICD site that has improved. No chest pain or palpitations reported. He gets short of breath on moderate exertion. REVIEW OF SYSTEMS: As discussed above, no nausea, vomiting, diarrhea, or focal deficit. PHYSICAL EXAMINATION: VITAL SIGNS: Temperature 97.9, respirations 18, pulse rate 89, and blood pressure 117/74 with O2 saturation 98% on room air. Weight unavailable. GENERAL: A 48-year-old male, in no apparent distress. LUNGS: Showed bibasilar rales, improved compared to yesterday. HEART: S1 and S2 present. Regular rate and rhythm. AICD site without any swelling or erythema. ABDOMEN: Soft. Bowel sounds present. EXTREMITIES: Edema, improving. No calf tenderness. NEUROLOGY: Grossly nonfocal. LABORATORY DATA: WBC 5.8, hemoglobin 13.4, hematocrit 44, and platelets 206. Creatinine 2.06 with BUN 47. His creatinine yesterday was 1.59. CD4 of 185. Chest x-ray by my review showed congestive heart failure. IMPRESSION AND PLAN: 1. Acute on chronic systolic heart failure, ejection fraction 15% to 20%. He had AICD placed yesterday. We will continue beta-blockers. We will hold DIANNE inhibitor due to renal failure. We will change Lasix to 40 mg IV daily. 2. Acute kidney injury on chronic kidney disease, stage 2. Plan as discussed above. We will hold the Bactrim as well due to renal failure. 3. Nonischemic cardiomyopathy with the last cardiac cath in 2011. 4. Elevated troponin, secondary to demand ischemia. 5. Atrial tachycardia, currently on Cardizem drip as well as amiodarone. Plan per Cardiology. 6. Human immunodeficiency virus. His CD4 count is 184. Dr. Pierson has started him on etravirine, lamivudine, and raltegravir. Again, Bactrim is currently on hold due to renal failure. 7. Hypertension. We will continue carvedilol. 8. Mild chronic anemia. 9. History of nonsustained ventricular tachycardia. 10. Hyperlipidemia. 11. Severe mitral regurgitation and moderate pulmonary regurgitation. 12. Morbid obesity with a BMI of 42.8. Plan was discussed with the patient. He stated understanding. Job ID: [id number]
--- NOTE | 2018-11-16 16:57 | HP ---
SUBJECTIVE: This morning, he is doing well. Denies any pain or shortness of breath. OBJECTIVE: VITAL SIGNS: Sats are 90% on room air, respiratory rate 18, temperature 97, and blood pressure 117/74. He is on a Cardizem drip. CHEST: Decreased breath sounds. No wheezing. CARDIAC: Normal S1 and S2. No gallops. ABDOMEN: Soft without any masses. IMPRESSION: 1. Congestive heart failure. 2. Chronic obstructive pulmonary disease. 3. Obstructive sleep apnea. 4. Supraventricular tachycardia, status post AICD. PLAN: Pulmonary horn, continue present treatment. seeing him for discussion of a dual-chamber ICD. Outpatient sleep study. Job ID: [id number]
[2018-11-16] MEDS: Acetaminophen 325 MG TAB PO PRN (22:16)
[2018-11-17] MEDS ORDERED: Diltiazem HCl 125 MG, Admixture Fee 1 EACH in Sodium Chloride 0.9% 100 ML IVPB SCH (05:15)
[2018-11-17] MEDS ORDERED: Cephalexin 250 MG CAP PO SCH (05:15)
[2018-11-17 06:07] LABS: Anion Gap 16 mmol/L (10-20); BUN (Urea Nitrogen) 46 mg/dL (8.9-20.6); Calc. Creatinine Clearance 101 mL/min (70-130); Calcium 8.5 mg/dL (7.8-10.44); Carbon Dioxide 24 mmol/L (22-29); Chloride 101 mmol/L (98-107); Estimated GFR-MDRD 50; Glucose 148 mg/dL (70-105); Sodium 137 mmol/L (136-145)
--- NOTE | 2018-11-17 06:29 | EKG ---
Test Reason : POST PACEMAKER INSER Blood Pressure : / mmHG Vent. Rate : 090 BPM Atrial Rate : 090 BPM P-R Int : 148 ms QRS Dur : 096 ms QT Int : 414 ms P-R-T Axes : 044 -69 043 degrees QTc Int : 506 ms Normal sinus rhythm Possible Left atrial enlargement Left axis deviation Left Anterior Fascicular Block Anterior infarct , age undetermined Prolonged QT Abnormal ECG When compared with ECG of 13-NOV-2018 19:32, Sinus rhythm has replaced Wide QRS tachycardia Vent. rate has decreased BY 75 BPM Confirmed by RINKU MANCERA ([id number]) on 11/17/2018 6:29:31 AM Referred By: EMETERIO Confirmed By:RINKU MANCERA
[2018-11-17] MEDS: Furosemide 40 MG/4 ML VIAL SLOW IVP SCH (09:45)
[2018-11-17] MEDS: Raltegravir Potassium 400 MG TAB PO SCH ×2 (09:45→21:11)
[2018-11-17] MEDS: Polyethylene Glycol 3350 17 GM Packet PO SCH ×2 (09:45→09:50)
[2018-11-17] MEDS: guaiFENesin ER 600 MG TAB PO SCH ×2 (09:46→21:10)
[2018-11-17] MEDS: Amiodarone 200 MG TAB PO SCH ×2 (09:46→21:12)
[2018-11-17] MEDS: Carvedilol 3.125 MG TAB PO SCH ×2 (09:47→21:12)
[2018-11-17] MEDS: Aspirin 81 mg Enteric Coated Tablet PO SCH (09:47)
[2018-11-17] MEDS: Enoxaparin Sodium 30 MG/0.3 ML SYRINGE SC SCH (09:47)
--- NOTE | 2018-11-17 14:18 | PRG ---
DATE OF SERVICE: 11/17/2018 SUBJECTIVE: He is awake, alert, and responsive. He apparently went back into atrial fibrillation, started on a Cardizem drip. He is already on p.o. amiodarone. OBJECTIVE: VITAL SIGNS: Blood pressure is 113/79, pulse 101, temperature 97, saturations 100%. CHEST: Decreased breath sounds. No wheezing. CARDIAC: Normal S1 and S2. No gallop. ABDOMEN: No masses. LABORATORY DATA: Creatinine 1.7. IMPRESSION: 1. Azotemia. 2. Obesity. 3. Congestive heart failure. 4. Probably sleep apnea. The patient already knows if he goes home, he is to call the office to get him on outpatient sleep study. Otherwise, disposition as per Cardiology. Job ID: [id number]
[2018-11-17] MEDS: Cephalexin 250 MG CAP PO SCH ×2 (15:37→21:12)
[2018-11-17] MEDS: Acetaminophen 325 MG TAB PO PRN (15:37)
[2018-11-17] MEDS ORDERED: Digoxin 0.5 MG/2 ML AMP SLOW IVP SCH ×2 (17:00→23:30)
--- NOTE | 2018-11-17 17:15 | OP ---
DATE OF PROCEDURE: 11/11/2018 PROCEDURE PERFORMED: Implantation of implantable cardiac defibrillator. PREOPERATIVE DIAGNOSIS: Left ventricular dysfunction. PROCEDURE DETAILS: The patient came to the EP lab in postobstructive state. Informed consent was obtained. A time-out was called. The patient was sedated by member of the anesthesia staff. Once the patient was adequately sedated, the left chest areas were prepped and draped in usual sterile fashion. A 10 mL venogram demonstrated patent left subclavian vein system. A 4-cm incision was made parallel to deltopectoral groove below the clavicle. The incision was carried down to the prepectoral fascia using combination of electrocautery and blunt dissection. A pocket was made above the prepectoral fascia. Using a modified Seldinger technique and with micro-access needle, access was obtained x2 into the distal axillary vein. Two peel-away sheaths were placed through the first peel-away sheath. A Medtronic 6935M-62 cm lead, serial #[id number], which is a single coil ventricular lead was advanced and placed into right ventricular apex. Once adequate sensing and thresholds were obtained, the lead was secured by extension of the helix. Following this, the sheath was peeled away and a second sheath was advanced through that a Medtronic 5076, 52 cm, serial #[id number] was advanced in the right atrium and placed into right atrial appendage. Once adequate sensing and thresholds were obtained, the lead was secured by extension of the helix. Numbers were follows: P-wave 2.9, R-wave was 4. Impedance 659 in the A and 658 in the V. Threshold in the atrium was 1.2 V at 0.5 milliseconds and threshold in the ventricle was 0.5 V at 0.5 milliseconds. DFT testing was differed because of pacing condition. The leads were secured to the prepectoral fascia using 0 silk suture x2 and connected to the Medtronic generator, which is a [employer] Evera XT DR, model #[id number], serial #[id number]. Cared to ensure that the leads went all the way until the end of the pin block. The pocket was copiously irrigated with antibiotic solution, and the ICD was placed in the pocket carefully with the leads underneath the ICD. The pocket was then closed with combination of 2-0, 3-0, and 4-0 Vicryl suture followed by Dermabond for the skin. The patient tolerated the procedure well and was awoken from anesthetic without any difficulty. POSTOPERATIVE DIAGNOSES: Left ventricular dysfunction and congestive heart failure. PROCEDURE PERFORMED: Implantation of dual chamber ICD. COMPLICATIONS: None acute. ESTIMATED BLOOD LOSS: Less than 30 mL. CONCLUSIONS: Successful implantation of dual chamber ICD. RECOMMENDATIONS: The patient will be at bedrest, will be on antibiotics and continue medical therapy for his heart failure as well as for his atrial tachycardia. Job ID: [id number]
--- NOTE | 2018-11-17 20:57 | PDOC.PN ---
- Subjective Encounter Start Date: 11/17/18 Encounter Start Time: 09:30 Patient seen and examined for CHF. No CP/SOB at rest. No new complaints. No overnight events - Objective Resuscitation Status - Order Detail: 11/11/18 18:35 Resuscitation Status Routine Resuscitation Status: FULL: Full Resuscitation MAR Reviewed: Yes Vital Signs & Weight: Vital Signs (12 hours) Temp Pulse Pulse Pulse Resp BP BP 11/17/18 17:16 98 11/17/18 15:38 98.8 F 98 16 11/17/18 12:00 98 F 97 18 11/17/18 10:31 101 H 101 H 119/73 113/79 BP Pulse Ox 11/17/18 17:16 11/17/18 15:38 110/68 98 11/17/18 12:00 110/74 99 11/17/18 10:31 Weight Admit Weight 311 lb Weight 307 lb I&O: 11/16/18 11/17/18 11/18/18 06:59 06:59 06:59 Intake Total 897 789.9 930 Output Total 1500 1145 850 Balance -603 -355.1 80 Result Diagrams: 11/18/18 04:41 11/18/18 04:41 Additional Labs: Accuchecks 11/17/18 11/17/18 11/17/18 20:14 16:49 12:33 POC Glucose 96 167 H 161 H 11/17/18 08:12 POC Glucose 169 H EKG Reviewed by me: Yes (Tele SR) Phys Exam - Physical Examination Constitutional: NAD Respiratory: no wheezing, no rhonchi few rales at bases, AICD site - ok Cardiovascular: RRR, no rub Gastrointestinal: soft, non-tender, positive bowel sounds Musculoskeletal: edema present Dx/Plan - Plan DVT proph w/lovenox, DVT proph w/SCDs 1. Acute on chronic systolic heart failure, ejection fraction 15% to 20%. 2. Acute kidney injury on chronic kidney disease, stage 2. 3. Nonischemic cardiomyopathy with the last cardiac cath in 2011. 4. Elevated troponin, secondary to demand ischemia. 5. Atrial tachycardia, currently on Cardizem drip as well as amiodarone. P 6. Human immunodeficiency virus. His CD4 count is 184. on etravirine, lamivudine, and raltegravir. Again, 7. Hypertension. We will continue carvedilol. 8. Mild chronic anemia. 9. History of nonsustained ventricular tachycardia. 10. Hyperlipidemia. 11. Severe mitral regurgitation and moderate pulmonary regurgitation. 12. Morbid obesity with a BMI of 42.8. PLAN: Cardizem drip restarted Bactrim/ACEI is currently on hold due to renal failure. Cont IV Lasix 40 mg daily with Coreg Cont other meds as below AM labs Review of Systems - Review of Systems Respiratory: negative: Cough, Dry, Shortness of Breath, Hemoptysis, SOB with Excertion, Pleuritic Pain, Sputum, Wheezing Cardiovascular: negative: chest pain, palpitations, orthopnea, paroxysmal nocturnal dyspnea, edema, light headedness, other - Medications/Allergies Allergies/Adverse Reactions: Allergies Allergy/AdvReac Type Severity Reaction Status Date / Time No Known Drug Allergies Allergy Verified 05/07/13 19:58 Medications: Current Medications Acetaminophen (Tylenol) 650 mg PO Q4H PRN PRN Reason: Headache/Fever/Mild Pain (1-3) Last Admin: 11/17/18 15:37 Dose: 650 mg Amiodarone HCl (Cordarone) 400 mg PO BID [facility] Last Admin: 11/17/18 09:46 Dose: 400 mg Aspirin (Ecotrin) 81 mg PO DAILY [facility] Last Admin: 11/17/18 09:47 Dose: 81 mg Calcium Carbonate (Tums) 1,000 mg PO Q4H PRN PRN Reason: Heartburn or Indigestion Carvedilol (Coreg) 3.125 mg PO BID [facility] Last Admin: 11/17/18 09:47 Dose: Not Given Cephalexin (Keflex) 250 mg PO TID [facility] Stop: 11/27/18 15:01 Last Admin: 11/17/18 15:37 Dose: 250 mg Digoxin (Lanoxin) 0.25 mg SLOW IVP 2330 [facility] Stop: 11/18/18 01:30 Digoxin (Lanoxin) 0.125 mg PO DAILY [facility] Enoxaparin Sodium (Lovenox) 30 mg SC 0900 [facility] Last Admin: 11/17/18 09:47 Dose: 30 mg Etravirine (Intelence) 200 mg PO BID-[facility] Last Admin: 11/17/18 16:56 Dose: 200 mg Furosemide (Lasix) 40 mg SLOW IVP DAILY [facility] Last Admin: 11/17/18 09:45 Dose: 40 mg Guaifenesin (Mucinex) 600 mg PO Q12HR [facility] Last Admin: 11/17/18 09:46 Dose: 600 mg Guaifenesin (Robitussin Sf) 200 mg PO Q4H PRN PRN Reason: Cough Lamivudine (Epivir) 150 mg PO BID [facility] Last Admin: 11/17/18 09:45 Dose: 150 mg Lisinopril (Zestril) 2.5 mg PO DAILY [facility] Last Admin: 11/15/18 08:48 Dose: 2.5 mg Ondansetron HCl (Zofran Odt) 4 mg PO Q6H PRN PRN Reason: Nausea/Vomiting Ondansetron HCl (Zofran) 4 mg IVP Q6H PRN PRN Reason: Nausea/Vomiting Polyethylene Glycol (Miralax) 17 gm PO DAILY [facility] Last Admin: 11/17/18 09:45 Dose: 17 gm Raltegravir (Isentress) 400 mg PO BID [facility] Last Admin: 11/17/18 09:45 Dose: 400 mg Senna (Senokot) 2 tab PO HSPRN PRN PRN Reason: Constipation Senna/Docusate Sodium (Senokot S) 2 tab PO BID PRN PRN Reason: Constipation Sodium Chloride (Flush - Normal Saline) 10 ml IVF PRN PRN PRN Reason: Saline Flush Last Admin: 11/16/18 21:19 Dose: 10 ml Throat Lozenges (Cepastat Lozenges) 1 fermin PO Q2H PRN PRN Reason: Sore Throat Trimethoprim/Sulfamethoxazole (Bactrim Ds) 1 tab PO DAILY [facility] Last Admin: 11/15/18 08:48 Dose: 1 tab
[2018-11-18 05:42] LABS: Anion Gap 14 mmol/L (10-20); BUN (Urea Nitrogen) 43 mg/dL (8.9-20.6); Calc. Creatinine Clearance 105 mL/min (70-130); Calcium 8.6 mg/dL (7.8-10.44); Carbon Dioxide 27 mmol/L (22-29); Chloride 101 mmol/L (98-107); Estimated GFR-MDRD 53; Glucose 103 mg/dL (70-105); Sodium 137 mmol/L (136-145)
[2018-11-18 05:46] LABS: Hemoglobin 12.6 g/dL (14.0-18.0); Platelet Count 170 thou/uL (130-400)
[2018-11-18] MEDS ORDERED: Melatonin 3 MG TAB PO PRN (07:00)
[2018-11-18] MEDS ORDERED: Digoxin 0.125 MG TAB PO SCH (09:00)
[2018-11-18 09:11] VITALS: TEMP 98.1
[2018-11-18] MEDS: Aspirin 81 mg Enteric Coated Tablet PO SCH (09:40)
[2018-11-18] MEDS: Furosemide 40 MG/4 ML VIAL SLOW IVP SCH (09:40)
[2018-11-18] MEDS: Raltegravir Potassium 400 MG TAB PO SCH (09:40)
[2018-11-18] MEDS: Enoxaparin Sodium 30 MG/0.3 ML SYRINGE SC SCH (09:40)
[2018-11-18] MEDS: guaiFENesin ER 600 MG TAB PO SCH (09:41)
[2018-11-18] MEDS: Amiodarone 200 MG TAB PO SCH (09:41)
[2018-11-18] MEDS: Carvedilol 3.125 MG TAB PO SCH (09:41)
[2018-11-18] MEDS: Cephalexin 250 MG CAP PO SCH (09:41)
[2018-11-18] MEDS: Polyethylene Glycol 3350 17 GM Packet PO SCH (09:42)
[2018-11-18] MEDS: Acetaminophen 325 MG TAB PO PRN (09:51)
[2018-11-18 11:43] VITALS: BP 114/77
--- NOTE | 2018-11-19 08:21 | DIS ---
DATE OF ADMISSION: 11/11/2018 DATE OF DISCHARGE: 11/18/2018 DISCHARGE DISPOSITION: Home. FOLLOWUP: 1. Follow up with primary care physician in [facility] as scheduled. 2. Follow up with Dr. Pierson. 3. Follow up with Cardiology after 4 to 6 weeks. 4. Outpatient cardiac rehab.. 5. The patient was advised to contact Dr. Pierson' office for his HIV medications. DISCHARGE MEDICATIONS: 1. Amiodarone 400 mg twice a day for two weeks, then 200 mg twice a day for two weeks, then 200 mg daily. 2. Aspirin 81 mg daily. 3. Carvedilol 3.125 mg b.i.d. 4. Keflex 250 mg three times daily for next four days. 5. Digoxin 0.125 mg daily. 6. Lasix 40 mg daily. 7. Lisinopril 2.5 mg daily. The patient was extensively counseled to be compliant with fluid and salt restriction. Daily weights were emphasized. The patient was seen and examined on the day of discharge. Denies any new complaints. Shortness of breath has significantly improved. BRIEF HOSPITAL COURSE: The patient is a 48-year-old male with chronic systolic heart failure, currently not taking any medications; as well as HIV; presented to the emergency room with shortness of breath. Please refer to the history and physical for further details. The patient was admitted to the hospital with a diagnosis of acute on chronic systolic heart failure exacerbation. His BNP on admission was 761 with indeterminate troponin. He was started on IV diuretics with good response. His weight on the day of discharge is 308 pounds from 311 pounds. Shortness of breath has significantly improved. He is currently on room air. He also developed atrial fibrillation with rapid ventricular response, requiring Cardizem and amiodarone drip. He was briefly transferred to intermediate care unit due to significant tachycardia. He was evaluated by Electrophysiology and underwent AICD placement on 11/15/2018. Lifestyle modification was emphasized. He was also evaluated by Infectious Disease, Dr. Pierson. His CD4 count was 185. He was started on HAART along with Bactrim. He then developed acute kidney injury with creatinine of 2.06 from 1.59. Bactrim was held for two days. His creatinine on the day of discharge is 1.69. He can probably be started back on Bactrim as well as HAART. He will he will call Dr. Pierson' office today for HIV medications including Bactrim. He will continue amiodarone loading. A low-dose digoxin was also added for Cardiology on the day of discharge. He would benefit from a digoxin level monitoring after a week, as well. He was extensively counseled on congestive heart failure. Total time coordinating the discharge of this patient was 37 minutes. FINAL DIAGNOSES: 1. Acute on chronic systolic heart failure exacerbation, ejection fraction 15% to 20%. 2. Acute kidney injury on chronic kidney disease stage 2. 3. Nonischemic cardiomyopathy with the last cardiac cath in 2011. 4. Elevated troponin secondary to demand ischemia. 5. Atrial tachycardia, currently on Cardizem drip as well as amiodarone. 6. Human immunodeficiency virus with a CD4 level of 184. 7. Hypertension. 8. Mild chronic anemia. 9. History of nonsustained ventricular tachycardia. 10. Morbid obesity with a BMI of 42.8. 11. History of nonsustained ventricular tachycardia. 12. Severe mitral regurgitation. 13. Moderate pulmonary regurgitation. 14. Suspected sleep apnea. The sleep study as outpatient is recommended. Job ID: [id number]
== END 2018-11-18 14:35 | disposition home or self-care (01) | DRG 226 ==
LOC: ERS 11:34 → EEVIPCON 19:48 → 2NO 19:48 → IMCU/EMU 11-14 00:47 → 2NO 11-14 15:46
PROVIDERS: ADMIT Internal Medicine; ATTEND Internal Medicine
PROC: 0JH608Z Insertion of Defibrillator Generator into Chest Subcutaneous Tissue and Fascia, Open Approach (ICD-10-PCS; principal; 2018-11-11)
PROC: 02HK3KZ Insertion of Defibrillator Lead into Right Ventricle, Percutaneous Approach (ICD-10-PCS; 2018-11-11)
PROC: 02H63KZ Insertion of Defibrillator Lead into Right Atrium, Percutaneous Approach (ICD-10-PCS; 2018-11-11)
DX: I13.0 Hypertensive heart and chronic kidney disease with heart failure and stage 1 through stage 4 chronic kidney disease, or unspecified chronic kidney disease (principal); I50.23 Acute on chronic systolic (congestive) heart failure; I24.8 Other forms of acute ischemic heart disease; Z68.41 Body mass index [BMI] 40.0-44.9, adult; N17.9 Acute kidney failure, unspecified; I42.8 Other cardiomyopathies; E66.01 Morbid (severe) obesity due to excess calories; N18.2 Chronic kidney disease, stage 2 (mild); R00.0 Tachycardia, unspecified; G47.33 Obstructive sleep apnea (adult) (pediatric); Z21 Asymptomatic human immunodeficiency virus [HIV] infection status; D64.9 Anemia, unspecified; E78.5 Hyperlipidemia, unspecified; I34.0 Nonrheumatic mitral (valve) insufficiency; Z91.19 Patient's noncompliance with other medical treatment and regimen; I37.1 Nonrheumatic pulmonary valve insufficiency
CPT/HCPCS: 33249; 36005; 36415; 36416; 71045; 75820; 80048; 80053; 80306; 81003; 81015; 82550; 83690; 83735; 83880; 84443; 84484; 85014; 85018; 85025; 85048; 85049; 86361; 93005; 93010; 93306; 93798; 94760; 96374; C1721; C1777; C1898; J0153; J0282; J0690; J1160; J1580; J1650; J1940; J2001; J2250; J2704; J3010; J7050; J7070